=== PATIENT | female | born 1980 | race African-American/Black ===

== ENCOUNTER → 2017-01-16 | Outpatient (CLI) | payer MEDICARE, MEDICAID | END | disposition home or self-care (01) | LOC: GMA 18:42 | PROVIDERS: ATTEND Nurse Practitioner Family | DX: N39.0 Urinary tract infection, site not specified (principal) ==

== ENCOUNTER 2017-02-22 11:54 | Emergency (ER) | payer MEDICARE, MEDICAID ==
[2017-02-22 12:21] VITALS: O2SAT 100
--- NOTE | 2017-02-22 13:34 | ED.PDOC ---
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 The patient normally has menstrual periods last 3 days but this one started approximately 1 week ago and has been significantly heavier than normal. It was also associated at the start with significant pain which is unusual for her. she has not had any medication changes recently. She has noted some increased bruising on her extremities and abdomen. No bleeding from the gums and no epistaxis. No significant headaches. No pain otherwise. The patient had lab work drawn earlier today that showed platelets of 6000 only. Additional testing performed at her clinic shows a negative test. INR is 1.0. Pro time is 12.5. White blood cell count is 8000. Hemoglobin and hematocrit are 11 and 34 respectively. Platelets were 6000 on that count. Differential is grossly normal. CMP was within normal limits. Urinalysis showed 3+ blood with 20-30 red blood cells. The patient has not been dizzy or weak from the bleeding. No syncope or near syncope. No chest pain or shortness of breath. She does apparently have a history of some mild CHF, gastroesophageal reflux disease and mild reactive airway disease. She does have Down syndrome. She also has some mild hypothyroidism. She had a cholecystectomy performed within the last year and a half. Timing/Duration: unsure Severity: moderate Improving Factors: nothing Worsening Factors: nothing Associated Symptoms: denies symptoms Allergies/Adverse Reactions: Allergies Penicillins Allergy (Mild, Verified 02/22/17 12:21) Rash Home Medications: Ambulatory Orders Furosemide [Lasix] 40 mg PO DAILY 04/25/16 Lisinopril 5 mg PO DAILY 06/06/16 Fluticasone Prop 0.05% Nasal [Flonase Nasal [place]] 1 spray BNAS DAILY PRN Ipratropium [place] Hfa [Atrovent Hfa] 17 mcg IN DAILY 06/07/16 Levothyroxine Sodium [Synthroid] 100 mcg PO DAILY 06/07/16 Potassium Chloride Microencaps [Klor-Con M20] 20 meq PO DAILY 06/07/16 Aspirin [(None)] 325 mg PO BEDTIME 08/30/16 Review of Systems - Review of Systems Constitutional: States: no symptoms reported EENTM: States: no symptoms reported Respiratory: States: no symptoms reported Cardiology: States: no symptoms reported Gastrointestinal/Abdominal: States: abdominal pain Genitourinary: States: other - menorrhagia Musculoskeletal: States: no symptoms reported Skin: States: no symptoms reported - with the exception of the bruising Neurological: States: no symptoms reported - no change from baseline Endocrine: States: no symptoms reported All other Systems: No Change from Baseline Past Medical History (General) - Patient Medical History Hx Seizures: No Hx Stroke: Yes - at 14 yo Hx Dementia: No Hx Asthma: Yes Hx of COPD: No Hx Cardiac Disorders: Yes - 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 Hx Congestive Heart Failure: No Hx Pacemaker: Yes Hx Hypertension: Yes Hx Thyroid Disease: No Hx Diabetes: Yes Hx Gastroesophageal Reflux: No Hx Renal Disease: No Hx Cancer: No Hx of HIV: No Hx Hepatitis C: No Hx MRSA: Yes - 2016 Abdomen MRSA Source:: Wound - Vaccination History Hx Tetanus, Diphtheria Vaccination: No Hx Influenza Vaccination: Yes Hx Pneumococcal Vaccination: Yes - Social History Hx Tobacco Use: No Hx Chewing Tobacco Use: No Hx Alcohol Use: No Hx Substance Use: No Hx Substance Use Treatment: No Hx Depression: No Hx Physical Abuse: No Hx Emotional Abuse: No Hx Suspected Abuse: No - Activities of Daily Living Hospice Agency (if applicable):: None - Female History Patient is a Female of Child Bearing Age (10 -59 yrs old): No Patient : No Family Medical History - Family History Mother Family History: Unknown Living Status: Still Living Hx Family;Other: Pt is adopted Physical Exam - Physical Exam General Appearance: Alert, Comfortable, No apparent distress Eye Exam: bilateral normal Ears, Nose, Throat: hearing grossly normal, normal ENT inspection, normal pharynx Neck: supple, normal inspection Respiratory: chest non-tender, lungs clear, normal breath sounds, no respiratory distress, no accessory muscle use Cardiovascular/Chest: normal peripheral pulses, regular rate, rhythm, no edema Peripheral Pulses: radial,right: 2+, radial,left: 2+, dorsalis pedis,right: 2+, dorsalis pedis,left: 2+ Gastrointestinal/Abdominal: non tender, soft - obese Rectal Exam: deferred Back Exam: normal inspection Extremity: normal range of motion, non-tender, normal inspection, no pedal edema , normal capillary refill Neurologic: alert, normal mood/affect, oriented x 3 Skin Exam: normal color - with the exception of the bruising Comments: Vital Signs - 24 hr 02/22/17 12:05 Temperature 97.5 F L Pulse Rate [ 68 pulse ox] Respiratory 20 Rate Blood Pressure 118/57 [Left Arm] O2 Sat by Pulse 100 Oximetry Progress - Progress Progress: 02/22/17 13:36 the patient is a 36-year-old female with Down syndrome presenting with severe thrombocytopenia and menorrhagia related to it. Source of the thrombocytopenia is uncertain. platelet levels were within normal limits as [address] scan of the abdomen and pelvis was also done 4 months ago that was largely normal. The patient will be transferred for platelet transfusion and hematology evaluation. Bleeding is not uncontrolled at this point. Vital signs are stable. The patient will be allowed to go by private car. Pelvic exam has been deferred at this time until after platelets have been given. - Results/Orders Results/Orders: Laboratory Tests 02/22/17 02/22/17 12:35 12:35 WBC 8.1 RBC 4.23 Hgb 11.1 L Hct 35.0 L MCV 82.8 MCH 26.2 L MCHC 31.7 L RDW 16.3 H Plt Count 7 L* MPV 12.1 H Absolute Neuts (auto) 5.10 Absolute Lymphs (auto) 2.20 Absolute Monos (auto) 0.50 Absolute Eos (auto) 0.20 Absolute Basos (auto) 0.10 Neutrophils % 62.9 Lymphocytes % 26.6 Monocytes % 6.7 Eosinophils % 2.5 Basophils % 1.3 PTT (SP) 25.7 Departure - Departure Clinical Impression: Thrombocytopenia Menorrhagia Qualifiers: Menorrahagia type: with regular cycle Qualified Code(s): N92.0 - Excessive and frequent menstruation with regular cycle Disposition: Transfer to Hospital Departure Forms: ED Discharge - Pt. Copy, Patient Portal Self Enrollment Referrals: Jerardo Truong MD [Primary Care Provider] - 1-2 Weeks Home Medications: Ambulatory Orders Furosemide [Lasix] 40 mg PO DAILY 04/25/16 Lisinopril 5 mg PO DAILY 06/06/16 Fluticasone Prop 0.05% Nasal [Flonase Nasal [place]] 1 spray BNAS DAILY PRN Ipratropium [place] Hfa [Atrovent Hfa] 17 mcg IN DAILY 06/07/16 Levothyroxine Sodium [Synthroid] 100 mcg PO DAILY 06/07/16 Potassium Chloride Microencaps [Klor-Con M20] 20 meq PO DAILY 06/07/16 Aspirin [(None)] 325 mg PO BEDTIME 08/30/16 Transfer to Outside Facility - Transfer Information Accepting Provider:: dr eli Accepting Facility: [facility] Reason for Transfer: required specialist not available
[2017-02-22 14:00] VITALS: BP 130/64; TEMP 97.1
== END 2017-02-22 13:52 | disposition short-term general hospital (02) ==
LOC: ER 11:54
DX: D69.6 Thrombocytopenia, unspecified (principal); N92.0 Excessive and frequent menstruation with regular cycle; I10 Essential (primary) hypertension; E11.9 Type 2 diabetes mellitus without complications; Z95.0 Presence of cardiac pacemaker; Z86.73 Personal history of transient ischemic attack (TIA), and cerebral infarction without residual deficits; Z79.82 Long term (current) use of aspirin; Z79.899 Other long term (current) drug therapy; Z88.0 Allergy status to penicillin

== ENCOUNTER → 2017-04-12 | Outpatient (CLI) | payer MEDICARE, MEDICAID | END | disposition home or self-care (01) | LOC: NC 14:05 | PROVIDERS: ATTEND Family Medicine | DX: D69.6 Thrombocytopenia, unspecified (principal) ==

== ENCOUNTER → 2017-04-17 | Outpatient (CLI) | payer MEDICARE, MEDICAID | END | disposition home or self-care (01) | LOC: LAB.NP 11:53 | PROVIDERS: ATTEND Family Medicine | DX: R30.0 Dysuria (principal); E11.9 Type 2 diabetes mellitus without complications; D69.6 Thrombocytopenia, unspecified ==

== ENCOUNTER → 2017-04-26 | Outpatient (CLI) | payer MEDICARE, MEDICAID | END | disposition home or self-care (01) | LOC: NC 15:29 | PROVIDERS: ATTEND Family Medicine | DX: D69.3 Immune thrombocytopenic purpura (principal) ==

== ENCOUNTER → 2017-05-03 | Outpatient (CLI) | payer MEDICARE, MEDICAID | END | disposition home or self-care (01) | LOC: NC 16:09 | PROVIDERS: ATTEND Family Medicine | DX: D69.3 Immune thrombocytopenic purpura (principal); E11.9 Type 2 diabetes mellitus without complications ==

== ENCOUNTER → 2017-05-10 | Outpatient (CLI) | payer MEDICARE, MEDICAID | END | disposition home or self-care (01) | LOC: NC 17:16 | PROVIDERS: ATTEND Internal Medicine | DX: D69.3 Immune thrombocytopenic purpura (principal) ==

== ENCOUNTER → 2017-05-23 | Outpatient (CLI) | payer MEDICARE, MEDICAID | LOC: NC 17:31 | PROVIDERS: ATTEND Family Medicine | DX: D69.3 Immune thrombocytopenic purpura (principal) ==

== ENCOUNTER → 2017-05-28 | Outpatient (CLI) | payer MEDICARE, MEDICAID | END | disposition home or self-care (01) | LOC: NC 16:49 | PROVIDERS: ATTEND Family Medicine | DX: D69.3 Immune thrombocytopenic purpura (principal) ==

== ENCOUNTER → 2017-06-06 | Outpatient (CLI) | payer MEDICARE, MEDICAID | END | disposition home or self-care (01) | LOC: NC 15:07 | PROVIDERS: ATTEND Internal Medicine | DX: D69.3 Immune thrombocytopenic purpura (principal); E11.9 Type 2 diabetes mellitus without complications; I50.9 Heart failure, unspecified ==

== ENCOUNTER → 2017-06-11 | Outpatient (CLI) | payer MEDICARE, MEDICAID | END | disposition home or self-care (01) | LOC: NC 15:56 | PROVIDERS: ATTEND Internal Medicine | DX: D69.3 Immune thrombocytopenic purpura (principal) ==

== ENCOUNTER → 2017-07-12 | Outpatient (CLI) | payer MEDICARE, MEDICAID | LOC: GMAM 20:15 | PROVIDERS: ATTEND Family Medicine | DX: D69.3 Immune thrombocytopenic purpura (principal) ==

== ENCOUNTER → 2017-07-19 | Outpatient (CLI) | payer MEDICARE, MEDICAID | END | disposition home or self-care (01) | LOC: NC 11:29 | PROVIDERS: ATTEND Family Medicine | DX: D69.3 Immune thrombocytopenic purpura (principal); D50.8 Other iron deficiency anemias; D53.1 Other megaloblastic anemias, not elsewhere classified ==

== ENCOUNTER → 2017-07-25 | Outpatient (CLI) | payer MEDICARE, MEDICAID | END | disposition home or self-care (01) | LOC: NC 14:57 | PROVIDERS: ATTEND Family Medicine | DX: D69.3 Immune thrombocytopenic purpura (principal) ==

== ENCOUNTER 2017-07-27 16:19 | Emergency (ER) | payer MEDICARE, OTHER ==
[2017-07-27 17:03] VITALS: BP 96/35; TEMP 98.5; O2SAT 97
--- NOTE | 2017-07-27 17:35 | ED.PDOC ---
History of Present Illness - General Chief Complaint: Skin/Abrasion/Tear Stated Complaint: right arm pain Time Seen by Provider: 07/27/17 17:24 Source: family - History of Present Illness Initial Comments: Odalis Brown 36 y/o female stated that she had iron infusion this am and had some extravasation of medication out of vein and afterwards been hurting right antecubital area where infusion was given. Timing/Duration: 1-3 hours Severity: moderate Improving Factors: nothing Worsening Factors: movement Associated Symptoms: denies symptoms Allergies/Adverse Reactions: Allergies Penicillins Allergy (Mild, Verified 02/22/17 12:21) Rash Home Medications: Ambulatory Orders Furosemide [Lasix] 40 mg PO DAILY 04/25/16 Lisinopril 5 mg PO DAILY 06/06/16 Fluticasone Prop 0.05% Nasal [Flonase Nasal [place]] 1 spray BNAS DAILY PRN Ipratropium [place] Hfa [Atrovent Hfa] 17 mcg IN DAILY 06/07/16 Levothyroxine Sodium [Synthroid] 137 mcg PO DAILY 06/07/16 Potassium Chloride Microencaps [Klor-Con M20] 20 meq PO DAILY 06/07/16 Aspirin [(None)] 325 mg PO BEDTIME 08/30/16 B-Complex W/ Folic Acid [B Complex] 1 tab PO DAILY 07/27/17 Control Pill 07/27/17 Vit W/ Ferrous Fumara [] 1 tab PO DAILY 07/27/17 Review of Systems - Review of Systems Constitutional: States: no symptoms reported EENTM: States: no symptoms reported Respiratory: States: no symptoms reported Cardiology: States: no symptoms reported Skin: States: see HPI Past Medical History (General) - Patient Medical History Hx Seizures: No Hx Stroke: Yes - at 14 yo Hx Dementia: No Hx Asthma: Yes Hx of COPD: No Hx Cardiac Disorders: Yes - 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 Hx Congestive Heart Failure: No Hx Pacemaker: Yes Hx Hypertension: Yes Hx Thyroid Disease: No Hx Diabetes: Yes Hx Gastroesophageal Reflux: No Hx Renal Disease: No Hx Cancer: No Hx of HIV: No Hx Hepatitis C: No Hx MRSA: Yes - 2016 Abdomen MRSA Source:: Wound Surgical History: cholecystectomy, other - cardiac surgery for correction of congenital defect - Vaccination History Hx Tetanus, Diphtheria Vaccination: No Hx Influenza Vaccination: No Hx Pneumococcal Vaccination: Yes - Social History Hx Tobacco Use: No Hx Chewing Tobacco Use: No Hx Alcohol Use: No Hx Substance Use: No Hx Substance Use Treatment: No Hx Depression: No Hx Physical Abuse: No Hx Emotional Abuse: No Hx Suspected Abuse: No - Activities of Daily Living Patient Lives Alone: No - family - Female History Patient : No Family Medical History - Family History Mother Family History: Unknown Living Status: Still Living Hx Family;Other: Pt is adopted Physical Exam - Physical Exam General Appearance: Alert, No apparent distress Eye Exam: bilateral normal Ears, Nose, Throat: hearing grossly normal, normal ENT inspection Neck: non-tender, supple Respiratory: chest non-tender, lungs clear Cardiovascular/Chest: normal peripheral pulses, regular rate, rhythm, no gallop , systolic murmur - grade 3/5 Peripheral Pulses: radial,right: 1+, radial,left: 1+ Gastrointestinal/Abdominal: non tender, soft Back Exam: no vertebral tenderness Extremity: no pedal edema, no calf tenderness Neurologic: alert, normal mood/affect Skin Exam: warm/dry, other - brownish skin discoloration antecubital area,no swelling ROM full elbow Progress - Progress Progress: 07/27/17 17:41 Vital Signs - 8 hr 07/27/17 16:51 Temperature 98.5 F Pulse Rate [ 67 Left Ulnar] Respiratory 20 Rate Blood Pressure 96/35 [Left Arm] O2 Sat by Pulse 97 Oximetry Departure - Departure Clinical Impression: Infusion extravasation of non-chemotherapy vesicant, History of thrombocytopenia Time of Disposition: 17:42 Disposition: Discharge to Home or Self Care Condition: Fair Departure Forms: ED Discharge - Pt. Copy, Patient Portal Self Enrollment Referrals: Jerardo Truong MD [Primary Care Provider] - 1-2 Weeks Home Medications: Ambulatory Orders Furosemide [Lasix] 40 mg PO DAILY 04/25/16 Lisinopril 5 mg PO DAILY 06/06/16 Fluticasone Prop 0.05% Nasal [Flonase Nasal [place]] 1 spray BNAS DAILY PRN Ipratropium [place] Hfa [Atrovent Hfa] 17 mcg IN DAILY 06/07/16 Levothyroxine Sodium [Synthroid] 137 mcg PO DAILY 06/07/16 Potassium Chloride Microencaps [Klor-Con M20] 20 meq PO DAILY 06/07/16 Aspirin [(None)] 325 mg PO BEDTIME 08/30/16 B-Complex W/ Folic Acid [B Complex] 1 tab PO DAILY 07/27/17 Control Pill 07/27/17 Vit W/ Ferrous Fumara [] 1 tab PO DAILY 07/27/17 Additional Instructions: RETURN TO EMERGENCY ROOM NEEDED;TYLENOL 500 mg (over the [id number] tablet by mouth 4 x a day as needed for pain;AVOID advil/aleve or other NSAIDS; alternate cold/warm moist pack 20 minutes at a time during waking hours only until better;may use lidocaine patch as directed if no allergies;Return to emergency room as needed
== END 2017-07-27 17:51 | disposition home or self-care (01) ==
LOC: ER 16:19
DX: T80.818A Extravasation of other vesicant agent, initial encounter (principal); D69.6 Thrombocytopenia, unspecified; I10 Essential (primary) hypertension; E11.9 Type 2 diabetes mellitus without complications; Z86.73 Personal history of transient ischemic attack (TIA), and cerebral infarction without residual deficits; Z79.899 Other long term (current) drug therapy; Z79.82 Long term (current) use of aspirin; Z88.0 Allergy status to penicillin

== ENCOUNTER → 2017-07-30 | Outpatient (CLI) | payer MEDICARE, OTHER | LOC: GMAM 18:40 | PROVIDERS: ATTEND Family Medicine | DX: D69.3 Immune thrombocytopenic purpura (principal); D64.9 Anemia, unspecified ==

== ENCOUNTER → 2017-08-09 | Outpatient (CLI) | payer MEDICARE, OTHER | END | disposition home or self-care (01) | LOC: NC 15:29 | PROVIDERS: ATTEND Family Medicine | DX: I50.9 Heart failure, unspecified (principal) ==

== ENCOUNTER → 2017-08-16 | Outpatient (CLI) | payer MEDICARE, OTHER | END | disposition home or self-care (01) | LOC: NC 16:09 | PROVIDERS: ATTEND Family Medicine | DX: D64.9 Anemia, unspecified (principal) ==

== ENCOUNTER → 2017-09-10 | Outpatient (CLI) | payer MEDICARE, MEDICAID | END | disposition home or self-care (01) | LOC: NC 16:46 | PROVIDERS: ATTEND Family Medicine | DX: D64.9 Anemia, unspecified (principal) ==

== ENCOUNTER → 2017-09-25 | Outpatient (CLI) | payer MEDICARE, MEDICAID | END | disposition home or self-care (01) | LOC: NC 13:13 | PROVIDERS: ATTEND Family Medicine | DX: D64.9 Anemia, unspecified (principal) ==

== ENCOUNTER → 2017-10-08 | Outpatient (CLI) | payer MEDICARE, MEDICAID | END | disposition home or self-care (01) | LOC: NC 16:44 | PROVIDERS: ATTEND Family Medicine | DX: D64.9 Anemia, unspecified (principal) ==

== ENCOUNTER → 2017-10-22 | Outpatient (CLI) | payer MEDICARE, MEDICAID | END | disposition home or self-care (01) | LOC: NC 12:56 | PROVIDERS: ATTEND Family Medicine | DX: D64.9 Anemia, unspecified (principal) ==

== ENCOUNTER → 2017-10-31 | Outpatient (CLI) | payer MEDICARE, MEDICAID | END | disposition home or self-care (01) | LOC: NC 20:06 | PROVIDERS: ATTEND Family Medicine | DX: D64.9 Anemia, unspecified (principal) ==

== ENCOUNTER → 2017-11-08 | Outpatient (CLI) | payer MEDICARE, MEDICAID | END | disposition home or self-care (01) | LOC: GMAM 12:16 | PROVIDERS: ATTEND Family Medicine | DX: D64.9 Anemia, unspecified (principal) ==

== ENCOUNTER → 2017-11-15 | Outpatient (CLI) | payer MEDICARE, MEDICAID | END | disposition home or self-care (01) | LOC: NC 13:38 | PROVIDERS: ATTEND Family Medicine | DX: D64.9 Anemia, unspecified (principal) ==

== ENCOUNTER → 2017-11-19 | Outpatient (CLI) | payer MEDICARE, MEDICAID | END | disposition home or self-care (01) | LOC: NC 11:21 | PROVIDERS: ATTEND Family Medicine | DX: D64.9 Anemia, unspecified (principal) ==

== ENCOUNTER → 2017-11-26 | Outpatient (CLI) | payer MEDICARE, MEDICAID | END | disposition home or self-care (01) | LOC: NC 14:06 | PROVIDERS: ATTEND Family Medicine | DX: D64.9 Anemia, unspecified (principal) ==

== ENCOUNTER → 2017-12-05 | Outpatient (CLI) | payer MEDICARE, MEDICAID | LOC: NC 15:16 | PROVIDERS: ATTEND Internal Medicine | DX: D64.9 Anemia, unspecified (principal); D69.3 Immune thrombocytopenic purpura ==

== ENCOUNTER → 2019-09-25 | Outpatient (CLI) | payer MEDICARE | LOC: GMAM 14:03 | PROVIDERS: ATTEND Family Medicine | DX: E03.9 Hypothyroidism, unspecified (principal); E11.9 Type 2 diabetes mellitus without complications; I10 Essential (primary) hypertension ==